=== PATIENT | male | born 1970 | race Caucasian/White ===

== ENCOUNTER 2020-06-29 20:51 | Emergency (ER) | payer OTHER, SELFPAY ==
[2020-06-29 20:55] VITALS: BP 155/101; PULSE 108; RESP 18; TEMP 35.6; O2SAT 98
[2020-06-29 22:13] VITALS: BP 147/68; PULSE 82; RESP 16; O2SAT 100
--- NOTE | 2020-06-30 16:09 | ED.UPPEXIN ---
HPI - Extremity Injury (Upper) General Chief Complaint: Wound/Laceration Stated Complaint: Need my elbow drained Time Seen by Provider: 06/29/20 21:46 History of Present Illness HPI narrative: Swelling to the left elbow after bumping it about 1 month ago. Mildly painful. Worse with activity. No redness, warth, fever, wound. He had a similar injury in the past and had it drained. Related Data Home Medications Medication Instructions Recorded Confirmed No Home Medications 06/29/20 06/29/20 Allergies Allergy/AdvReac Type Severity Reaction Status Date / Time tramadol Allergy Unknown Unknown Verified 06/29/20 20:59 Dairy Allergy Mild Nausea Uncoded 06/29/20 20:59 Review of Systems Review of Systems: All systems reviewed & are unremarkable except as noted in HPI and below PMFSH Social History Social History Gender identity (if verbalized by the patient): Male Exam Const: General: healthy appearing, no acute distress and alert Orientation/consciousness: patient oriented x3 HENMT: Head: normal to inspection Resp: Effort & Inspection: normal respiratory effort Auscultation: clear to auscultation bilaterally Cardio: Rate: regular rate Rhythm: regular rhythm Other: 2+ left radial pulse Skin: General skin exam: normal color Rashes: no rashes Wounds: no wounds Neuro: General: patient oriented x3, moves all extremities and no focal motor deficits Speech: normal speech Gait exam (Neuro): Normal gait present Extrem: Other: Baseball size fluctuant patellar bursa Course Vital Signs Vital signs: Vital Signs Temperature 35.6 C L 06/29/20 20:55 Pulse Rate 108 H 06/29/20 20:55 Respiratory Rate 18 06/29/20 20:55 Blood Pressure 155/101 H 06/29/20 20:55 Pulse Oximetry 98 06/29/20 20:55 Temperature 35.6 C L 06/29/20 20:55 Pulse Rate 82 06/29/20 22:13 Respiratory Rate 16 06/29/20 22:13 Blood Pressure 147/68 H 06/29/20 22:13 Pulse Oximetry 100 06/29/20 22:13 Procedures Bursa Procedures Bursa #1: Side of body: left Site of Procedure: olecranon bursa XRAY Obtained: none Antisepsis Used: Chlorhexidine Local Anesthetic: none Fluid obtained (mL): 25 Fluid Type: clear Patient Tolerated Procedure: well Complications: none Additional Comments: I advised the patient prior to the procedure that drainage would increase the possibility of infection. He understood and wanted to proceed anyway. Discharge Plan Discharge Clinical Impression: Effusion of left olecranon bursa Patient Disposition: Home, Self-Care Condition: Stable Instructions: Elbow Bursitis (ED) Prescriptions: No Action No Home Medications RF: 0 Follow-up/Referrals: Kwan,PIERCE Bolton [Primary Care Provider] -
== END 2020-06-29 22:13 | disposition home or self-care (01) ==
PROVIDERS: Emergency Provider Emergency Medicine; PCP Nurse Practitioner Adult Health
DX: M25.422 Effusion, left elbow (principal)
CPT/HCPCS: 20605; 99282